=== PATIENT | male | born 1935 | race Caucasian/White ===

== ENCOUNTER 2020-01-12 16:15 | Emergency (ER) | payer OTHER, MEDICARE ==
[~2020-01-12] VITALS: Ht 165.1 cm; Wt 68.2 kg
[~2020-01-12 16:15] MED LIST: ASPI-845 PO; LANS15CA18 PO; LOVA20TA2 PO
[2020-01-12 17:02] LABS: BASOPHILS % (AUTO) 0.8 % (0-1); EOSINOPHILS # (AUTO) 0.4 X10'3 (0-0.9); EOSINOPHILS % (AUTO) 8.9 % (0-6); HEMATOCRIT 30.4 % (42.0-52.0); HEMOGLOBIN 10.3 g/dl (14.0-17.9); LYMPHOCYTES # (AUTO) 0.7 X10'3 (1.1-4.8); LYMPHOCYTES % (AUTO) 15.8 % (21-51); MEAN CORPUSCULAR HEMOGLOBIN 33.3 PG (27.0-31.0); MEAN CORPUSCULAR HGB CONC 33.9 g/dL (33.0-36.5); MEAN CORPUSCULAR VOLUME 98.4 FL (78-98); MEAN PLATELET VOLUME 7.4 FL (7.4-10.4); MONOCYTES # (AUTO) 0.5 X10'3 (0-0.9); MONOCYTES % (AUTO) 9.8 % (2-12); NEUTROPHILS % (AUTO) 64.7 % (42-75); PLATELET COUNT 68 X10'3 (140-440); RED BLOOD COUNT 3.09 X10'6 (4.70-6.10); RED CELL DISTRIBUTION WIDTH 17.7 % (11.5-14.5); WHITE BLOOD COUNT 4.6 X10'3 (4.5-11.0)
[2020-01-12 17:14] LABS: ALANINE AMINOTRANSFERASE 30 U/L (12-78); ALBUMIN 3.7 G/DL (3.4-5.0); ALBUMIN/GLOBULIN RATIO 1.1 (1.1-1.5); ALKALINE PHOSPHATASE 160 IU/L (46-116); ANION GAP 10 (8-16); ASPARTATE AMINO TRANSFERASE 28 U/L (10-37); BILIRUBIN,TOTAL 0.6 MG/DL (0.1-1.0); BLOOD UREA NITROGEN 30 MG/DL (7-18); BUN/CREATININE RATIO 18.5 (5.4-32.0); CALCIUM 8.6 MG/DL (8.5-10.1); CHLORIDE 107 MMOL/L (99-107); CREATININE 1.62 MG/DL (0.60-1.10); GLUCOSE 105 MG/DL (70-104); POTASSIUM 3.9 MMOL/L (3.5-5.1); SODIUM 140 MMOL/L (135-145); TOTAL CARBON DIOXIDE 23.1 MMOL/L (24-32); TOTAL PROTEIN 7.1 G/DL (6.4-8.2); eGFR 41 ML/MIN
--- NOTE | 2020-01-12 19:21 | NUR ---
Pt's ex- Kati phoned to inquire about the patient's status. Pt gave verbal permission to speak with the caller. Pt is ambulating with a staff nurse for a gait test at this time and disposition should be pending shortly
[2020-01-12] MEDS ORDERED: NO HOME MEDS (19:49)
--- NOTE | 2020-01-12 19:56 | NUR ---
tele neuro consult ordered, computer in room now
[2020-01-12] MEDS ORDERED: normal saline 1000ml 1,000 ML IV SCH (20:33)
[2020-01-12] MEDS ORDERED: ondansetron/PF 4mg/2ml inj IV PRN (20:35)
[2020-01-12] MEDS ORDERED: acetaminophen 325mg tablet PO PRN (20:35)
[2020-01-12 21:23] VITALS: BP 184/94
[2020-01-13] MEDS ORDERED: docusate sod 100mg capsule PO SCH (08:00)
[2020-01-13] MEDS ORDERED: aspirin 81mg tablet.DR PO SCH (08:30)
== END 2020-01-12 21:25 | disposition left against medical advice (07) ==
LOC: ER 16:16 → UNDOADMIN 20:33 → ED HOLD 20:33 → UNDODISIN 21:23 → ER 21:25
DX: R42 Dizziness and giddiness (principal); I13.0 Hypertensive heart and chronic kidney disease with heart failure and stage 1 through stage 4 chronic kidney disease, or unspecified chronic kidney disease; I50.22 Chronic systolic (congestive) heart failure; I69.351 Hemiplegia and hemiparesis following cerebral infarction affecting right dominant side; E78.00 Pure hypercholesterolemia, unspecified; Z53.29 Procedure and treatment not carried out because of patient's decision for other reasons; I25.10 Atherosclerotic heart disease of native coronary artery without angina pectoris; N18.9 Chronic kidney disease, unspecified; M54.9 Dorsalgia, unspecified; G89.29 Other chronic pain; I25.2 Old myocardial infarction; Z95.1 Presence of aortocoronary bypass graft; Z90.49 Acquired absence of other specified parts of digestive tract
CPT/HCPCS: 36415; 70450; 71045; 80053; 83880; 84484; 85025; 93005; 99285; G0378

== ENCOUNTER 2022-10-02 10:08 | Emergency (ER) | payer OTHER, MEDICARE ==
[~2022-10-02] VITALS: Ht 165.1 cm; Wt 72.0 kg
[2022-10-02 10:37] LABS: BASOPHILS % (AUTO) 0.7 % (0-1); EOSINOPHILS # (AUTO) 0.1 X10'3 (0-0.9); EOSINOPHILS % (AUTO) 1.8 % (0-6); HEMATOCRIT 33.8 % (42.0-52.0); HEMOGLOBIN 10.8 g/dl (14.0-17.9); LYMPHOCYTES # (AUTO) 0.7 X10'3 (1.1-4.8); MEAN CORPUSCULAR HEMOGLOBIN 30.2 PG (27.0-31.0); MEAN CORPUSCULAR HGB CONC 31.9 g/dL (33.0-36.5); MEAN CORPUSCULAR VOLUME 94.6 FL (78-98); MEAN PLATELET VOLUME 7.7 FL (7.4-10.4); MONOCYTES # (AUTO) 0.6 X10'3 (0-0.9); MONOCYTES % (AUTO) 9.5 % (2-12); NEUTROPHILS # (AUTO) 4.7 X10'3 (1.8-7.7); PLATELET COUNT 89 X10'3 (140-440); RED BLOOD COUNT 3.57 X10'6 (4.70-6.10); RED CELL DISTRIBUTION WIDTH 23.7 % (11.5-14.5); WHITE BLOOD COUNT 6.1 X10'3 (4.5-11.0)
[2022-10-02 10:46] LABS: ALANINE AMINOTRANSFERASE 24 U/L (12-78); ALBUMIN 3.4 G/DL (3.4-5.0); ALKALINE PHOSPHATASE 126 IU/L (46-116); ANION GAP 11 (8-16); ASPARTATE AMINO TRANSFERASE 33 U/L (10-37); BLOOD UREA NITROGEN 27 MG/DL (7-18); BUN/CREATININE RATIO 14.5 (10.0-20.0); CALCIUM 8.6 MG/DL (8.5-10.1); CHLORIDE 111 MMOL/L (99-107); CREATININE 1.86 MG/DL (0.60-1.10); GLUCOSE 127 MG/DL (70-104); POTASSIUM 4.8 MMOL/L (3.5-5.1); SODIUM 144 MMOL/L (135-145); TOTAL PROTEIN 6.9 G/DL (6.4-8.2); eGFR 35 ML/MIN
[2022-10-02 10:51] LABS: LARGE PLATELETS FEW; PLATELET ESTIMATE DECREASED
[2022-10-02 10:52] LABS: ACANTHOCYTES FEW; ANISOCYTOSIS 3+; ELLIPTOCYTES FEW; SCHISTOCYTES FEW
[2022-10-02 11:02] LABS: LIPASE < 50 U/L (73-393)
[2022-10-02 11:24] LABS: MAGNESIUM 1.9 MG/DL (1.5-2.4)
[2022-10-02] MEDS ORDERED: furosemide 20MG tablet PO ONE (12:25)
[2022-10-02] MEDS ORDERED: FURO-150 PO (12:27)
[2022-10-02] MEDS ORDERED: POTA-192 PO (12:27)
[2022-10-02 14:22] VITALS: BP 161/105
== END 2022-10-02 14:15 | disposition home or self-care (01) ==
LOC: ER 10:09
DX: I11.0 Hypertensive heart disease with heart failure (principal); E78.00 Pure hypercholesterolemia, unspecified; I10 Essential (primary) hypertension; Z79.899 Other long term (current) drug therapy
CPT/HCPCS: 36415; 71045; 80053; 83690; 83735; 83880; 84484; 85008; 85025; 93005; 99285

== ENCOUNTER 2023-08-24 06:45 | Emergency (ER) | payer OTHER, MEDICARE ==
[~2023-08-24] VITALS: Ht 167.6 cm; Wt 66.4 kg
[~2023-08-24 06:45] MED LIST changes: -ASPI-845 PO; +FURO-150 PO; -LANS15CA18 PO; -LOVA20TA2 PO
[2023-08-24 06:48] VITALS: BP 169/87; PULSE 103; RESP 16; TEMP 98; O2SAT 100
[2023-08-24] MEDS ORDERED: NEOM10DR45 RIGHT EAR (09:24)
== END 2023-08-24 09:38 | disposition home or self-care (01) ==
LOC: ER 06:46
DX: H60.91 Unspecified otitis externa, right ear (principal); T16.1XXA Foreign body in right ear, initial encounter; E78.00 Pure hypercholesterolemia, unspecified; I11.0 Hypertensive heart disease with heart failure; I50.9 Heart failure, unspecified; Z95.1 Presence of aortocoronary bypass graft; Z86.73 Personal history of transient ischemic attack (TIA), and cerebral infarction without residual deficits; I25.2 Old myocardial infarction
CPT/HCPCS: 99283

== ENCOUNTER 2023-10-07 13:03 | Emergency (ER) | payer OTHER, MEDICARE ==
[~2023-10-07] VITALS: Ht 175.3 cm; Wt 63.6 kg
[2023-10-07 15:27] VITALS: BP 148/90; PULSE 65; RESP 17; TEMP 98.7; O2SAT 98
== END 2023-10-07 15:29 | disposition home or self-care (01) ==
LOC: ER 13:03
DX: S00.31XA Abrasion of nose, initial encounter (principal); S09.90XA Unspecified injury of head, initial encounter; I25.10 Atherosclerotic heart disease of native coronary artery without angina pectoris; Z86.73 Personal history of transient ischemic attack (TIA), and cerebral infarction without residual deficits; I11.0 Hypertensive heart disease with heart failure; I50.9 Heart failure, unspecified; E78.00 Pure hypercholesterolemia, unspecified; I25.2 Old myocardial infarction; Z95.1 Presence of aortocoronary bypass graft; W18.30XA Fall on same level, unspecified, initial encounter; Y93.01 Activity, walking, marching and hiking; Y92.89 Other specified places as the place of occurrence of the external cause; Y99.8 Other external cause status
CPT/HCPCS: 70450; 99284; A6449

== ENCOUNTER 2024-02-28 20:55 | Inpatient (IN) | payer MEDICARE, OTHER ==
[~2024-02-28] VITALS: Ht 167.6 cm; Wt 62.8 kg
[2024-02-28 21:48] LABS: HEMOGLOBIN 9.6 g/dl (14.0-17.9); MONOCYTES # (AUTO) 0.3 X10'3 (0-0.9); RED BLOOD COUNT 2.89 X10'6 (4.70-6.10)
[2024-02-28 21:50] LABS: BASOPHILS % (AUTO) 0.3 % (0-1); EOSINOPHILS % (AUTO) 0.3 % (0-6); HEMATOCRIT 29.6 % (42.0-52.0); LYMPHOCYTES # (AUTO) 0.3 X10'3 (1.1-4.8); LYMPHOCYTES % (AUTO) 6.1 % (21-51); MEAN CORPUSCULAR HEMOGLOBIN 33.2 PG (27.0-31.0); MEAN CORPUSCULAR HGB CONC 32.3 g/dL (33.0-36.5); MEAN CORPUSCULAR VOLUME 102.8 FL (78-98); MEAN PLATELET VOLUME 8.7 FL (7.4-10.4); MONOCYTES % (AUTO) 5.8 % (2-12); NEUTROPHILS # (AUTO) 4.1 X10'3 (1.8-7.7); NEUTROPHILS % (AUTO) 87.5 % (42-75); RED CELL DISTRIBUTION WIDTH 20.1 % (11.5-14.5); WHITE BLOOD COUNT 4.7 X10'3 (4.5-11.0)
[2024-02-28 22:04] LABS: ALANINE AMINOTRANSFERASE 35 U/L (12-78); ALBUMIN 2.1 G/DL (3.4-5.0); ALBUMIN/GLOBULIN RATIO 0.6 (1.1-1.5); ALKALINE PHOSPHATASE 44 IU/L (46-116); ANION GAP 12 (8-16); ASPARTATE AMINO TRANSFERASE 80 U/L (10-37); BILIRUBIN,TOTAL 3.4 MG/DL (0.1-1.0); BLOOD UREA NITROGEN 74 MG/DL (7-18); BUN/CREATININE RATIO 26.3 (10.0-20.0); CALCIUM 8.4 MG/DL (8.5-10.1); CHLORIDE 130 MMOL/L (99-107); CREATININE 2.81 MG/DL (0.60-1.10); GLUCOSE 100 MG/DL (70-104); POTASSIUM 3.3 MMOL/L (3.5-5.1); PRO BRAIN NATRIURETIC PEPTIDE 12647 PG/ML (0-450); TOTAL CARBON DIOXIDE 22.8 MMOL/L (24-32); TOTAL PROTEIN 5.8 G/DL (6.4-8.2); eCRCL 14 ML/MIN; eGFR 21 ML/MIN
[2024-02-28 22:16] LABS: SODIUM 165 MMOL/L (135-145)
[2024-02-28 22:31] LABS: PLATELET COUNT 41 X10'3 (140-440)
[2024-02-28 22:48] LABS: CREATINE KINASE 403 U/L (39-308)
[2024-02-28 22:51] LABS: ETHANOL < 10 MG/DL (<10)
[2024-02-28 22:54] LABS: ANISOCYTOSIS 3+; PLATELET ESTIMATE DECREASED; ROULEAUX 1+
[2024-02-28 22:55] LABS: SCHISTOCYTES FEW; TEAR DROP CELLS FEW
[2024-02-28] MEDS: sodium chloride 0.45% 1,000 ML IV ONE (23:03)
[2024-02-28] MEDS: CefTRIAXone/D5W-Rocephin 1gm 50 ML IV ONE (23:32)
[2024-02-28] MEDS: thiamine 100mg/ml 2ml inj. IV ONE (23:32)
[2024-02-29] VITALS (13 sets, daily range): BP systolic 93–121; BP diastolic 5–85; PULSE 81–106; RESP 11–21; O2SAT 93–100
[2024-02-29] MEDS ORDERED: magnesium hydroxide 30ml (MOM) UD suspension PO PRN (00:05)
[2024-02-29] MEDS: LidoCAINE 2% Topical Jelly 11mL syringe (UROJET) TOP ONE (00:05)
[2024-02-29] MEDS ORDERED: acetaminophen 325mg tablet PO PRN ×2 (00:05)
[2024-02-29] MEDS ORDERED: morphine 4 MG/ML inj SYRINge IV PRN (00:05)
[2024-02-29] MEDS: PERFLUTREN PROTEIN-A MICROSPHR (Optison) 0.22 MG/ML 3ML VIAL IV ONE (00:45)
[2024-02-29 01:46] LABS: THYROID STIMULATING HORMONE 3.16 ulU/ml (0.34-4.50)
[2024-02-29] MEDS: bacitracin 15gm ointment TP STA ×2 (03:10→04:12)
[2024-02-29] MEDS: ondansetron/PF 4mg/2ml inj IV PRN (03:17)
[2024-02-29] MEDS: morphine 2 MG/ML inj. syringe IV PRN (03:17)
[2024-02-29 05:31] LABS: BILIRUBIN,URINE MODERATE (Neg); CLARITY,URINE SLIGHTLY CLOUDY (Clear); GLUCOSE, URINE NEGATIVE (Neg); KETONES,URINE TRACE mg/dl (Neg); LEUKOCYTE ESTERASE ,URINE NEGATIVE (Neg); NITRITES, URINE NEGATIVE (Neg); OCCULT BLOOD,URINE SMALL (Neg); PH,URINE 5.5 (4.8-8.0); PROTEIN,URINE 30 mg/dl (Neg)
[2024-02-29 05:35] LABS: COLOR,URINE DARK YELLOW (Yellow); UA COLLECTION TYPE FOLEY CATH
[2024-02-29 05:39] LABS: BACTERIA,URINE 4+ /HPF (Neg); MUCUS STRANDS NONE SEEN /LPF (Neg); RBC,URINE 0-2 /HPF (0-2); SQUAMOUS EPITHELIAL CELL,UR FEW /LPF (FEW)
[2024-02-29 05:40] LABS: CELLULAR CAST 0-4 /LPF (NEGATIVE); COARSE GRANULAR CAST 0-3 /LPF (NEGATIVE)
[2024-02-29 05:41] LABS: RENAL CELLS, URINE FEW /HPF
[2024-02-29 06:39] LABS: ALANINE AMINOTRANSFERASE 34 U/L (12-78); ALBUMIN 2.1 G/DL (3.4-5.0); ALBUMIN/GLOBULIN RATIO 0.6 (1.1-1.5); ALKALINE PHOSPHATASE 45 IU/L (46-116); ANION GAP 10 (8-16); ASPARTATE AMINO TRANSFERASE 79 U/L (10-37); BILIRUBIN,TOTAL 2.9 MG/DL (0.1-1.0); BLOOD UREA NITROGEN 71 MG/DL (7-18); BUN/CREATININE RATIO 27.5 (10.0-20.0); CALCIUM 8.2 MG/DL (8.5-10.1); CHLORIDE 129 MMOL/L (99-107); CREATININE 2.58 MG/DL (0.60-1.10); GLUCOSE 118 MG/DL (70-104); POTASSIUM 3.2 MMOL/L (3.5-5.1); TOTAL CARBON DIOXIDE 22.9 MMOL/L (24-32); TOTAL PROTEIN 5.8 G/DL (6.4-8.2); eCRCL 15 ML/MIN; eGFR 24 ML/MIN
[2024-02-29 06:41] LABS: SODIUM 162 MMOL/L (135-145)
[2024-02-29 06:46] LABS: EOSINOPHILS % (AUTO) 0.3 % (0-6); HEMOGLOBIN 9.7 g/dl (14.0-17.9); LYMPHOCYTES # (AUTO) 0.2 X10'3 (1.1-4.8); NEUTROPHILS # (AUTO) 4.3 X10'3 (1.8-7.7); WHITE BLOOD COUNT 4.9 X10'3 (4.5-11.0)
[2024-02-29 06:48] LABS: BASOPHILS % (AUTO) 0.3 % (0-1); HEMATOCRIT 29.6 % (42.0-52.0); LYMPHOCYTES % (AUTO) 4.1 % (21-51); MEAN CORPUSCULAR HEMOGLOBIN 33.6 PG (27.0-31.0); MEAN CORPUSCULAR HGB CONC 32.8 g/dL (33.0-36.5); MEAN CORPUSCULAR VOLUME 102.4 FL (78-98); MEAN PLATELET VOLUME 8.7 FL (7.4-10.4); MONOCYTES # (AUTO) 0.3 X10'3 (0-0.9); MONOCYTES % (AUTO) 6.3 % (2-12); RED BLOOD COUNT 2.89 X10'6 (4.70-6.10); RED CELL DISTRIBUTION WIDTH 20.3 % (11.5-14.5)
[2024-02-29 06:50] LABS: PLATELET COUNT 33 X10'3 (140-440)
[2024-02-29 08:42] LABS: CHOL/HDL RATIO 3.2 (0.00-4.99); CHOLESTEROL 110 MG/DL (0-200); HDL CHOLESTEROL 34 MG/DL (35-60); LDL CHOLESTEROL 56 MG/DL (50-100); MAGNESIUM 2.3 MG/DL (1.5-2.4); TRIGLYCERIDES 150 MG/DL (20-135)
[2024-02-29 08:50] LABS: HEMOGLOBIN A1C 5.4 % (4.5-6.2)
[2024-02-29] MEDS: dextrose 5%-water 1,000 ML IV SCH (10:09)
[2024-02-29] MEDS ORDERED: potassium Cl 20 mEq SR tablet PO PRN (10:50)
[2024-02-29] MEDS ORDERED: potassium CL 10mEq/100ml bag 100 ML IV PRN (10:50)
[2024-02-29] MEDS ORDERED: magnesium sulf-water 2g/50mL 50 ML IV PRN (10:50)
[2024-02-29] MEDS ORDERED: acetaminophen 325mg tablet CORPAK PRN ×2 (14:23)
[2024-02-29] MEDS ORDERED: magnesium hydroxide 30ml (MOM) UD suspension CORPAK PRN (14:24)
[2024-02-29] MEDS ORDERED: potassium Cl 20 mEq SR tablet CORPAK PRN (14:24)
[2024-02-29] MEDS: potassium Cl 40MEQ/1/2NS 520ml 520 ML IV PRN (14:25)
[2024-02-29] MEDS ORDERED: POTASSIUM CHLORIDE 20 MEQ/15 ML oral solution CORPAK PRN (14:25)
[2024-02-29] MEDS ORDERED: aspirin 81mg, enteric-coated 1 TAB TABLET.DR PO SCH (14:30)
[2024-02-29 15:28] LABS: ALBUMIN 1.9 G/DL (3.4-5.0); ANION GAP 8 (8-16); BLOOD UREA NITROGEN 74 MG/DL (7-18); BUN/CREATININE RATIO 30.2 (10.0-20.0); CHLORIDE 129 MMOL/L (99-107); CREATININE 2.45 MG/DL (0.60-1.10); GLUCOSE 136 MG/DL (70-104); TOTAL CARBON DIOXIDE 22.7 MMOL/L (24-32); eCRCL 16 ML/MIN; eGFR 25 ML/MIN
[2024-02-29 15:29] LABS: POTASSIUM 3.4 MMOL/L (3.5-5.1)
[2024-02-29 15:33] LABS: SODIUM 160 MMOL/L (135-145)
[2024-02-29] MEDS ORDERED: NO HOME MEDS (17:24)
[2024-02-29] MEDS: DOBUTamine-DoBUTrex 500mg/D5W 250 ML IV SCH (19:19)
[2024-02-29] MEDS: CefTRIAXone/D5W-Rocephin 1gm 50 ML IV SCH (20:26)
[2024-03-01] VITALS (24 sets, daily range): BP systolic 83–109; BP diastolic 39–58; PULSE 81–96; RESP 12–20; O2SAT 95–100
[2024-03-01 01:38] LABS: EOSINOPHILS % (AUTO) 0.5 % (0-6); HEMOGLOBIN 8.6 g/dl (14.0-17.9); LYMPHOCYTES # (AUTO) 0.3 X10'3 (1.1-4.8); MONOCYTES # (AUTO) 0.2 X10'3 (0-0.9)
[2024-03-01 01:40] LABS: BASOPHILS % (AUTO) 0.5 % (0-1); HEMATOCRIT 26.4 % (42.0-52.0); LYMPHOCYTES % (AUTO) 6.8 % (21-51); MEAN CORPUSCULAR HEMOGLOBIN 33.5 PG (27.0-31.0); MEAN CORPUSCULAR HGB CONC 32.5 g/dL (33.0-36.5); MEAN CORPUSCULAR VOLUME 103.2 FL (78-98); MEAN PLATELET VOLUME 8.7 FL (7.4-10.4); MONOCYTES % (AUTO) 4.6 % (2-12); NEUTROPHILS # (AUTO) 3.8 X10'3 (1.8-7.7); NEUTROPHILS % (AUTO) 87.6 % (42-75); RED BLOOD COUNT 2.56 X10'6 (4.70-6.10); RED CELL DISTRIBUTION WIDTH 20.7 % (11.5-14.5); WHITE BLOOD COUNT 4.3 X10'3 (4.5-11.0)
[2024-03-01 01:42] LABS: PLATELET COUNT 26 X10'3 (140-440)
[2024-03-01 02:19] LABS: ALANINE AMINOTRANSFERASE 32 U/L (12-78); ALBUMIN 1.9 G/DL (3.4-5.0); ALBUMIN/GLOBULIN RATIO 0.6 (1.1-1.5); ALKALINE PHOSPHATASE 48 IU/L (46-116); ANION GAP 6 (8-16); ASPARTATE AMINO TRANSFERASE 72 U/L (10-37); BILIRUBIN,TOTAL 1.6 MG/DL (0.1-1.0); BLOOD UREA NITROGEN 66 MG/DL (7-18); BUN/CREATININE RATIO 28.1 (10.0-20.0); CHLORIDE 125 MMOL/L (99-107); CREATINE KINASE 402 U/L (39-308); CREATININE 2.35 MG/DL (0.60-1.10); GLUCOSE 233 MG/DL (70-104); MAGNESIUM 2.2 MG/DL (1.5-2.4); PHOSPHORUS 2.8 MG/DL (2.3-4.5); POTASSIUM 4.5 MMOL/L (3.5-5.1); PRO BRAIN NATRIURETIC PEPTIDE 9889 PG/ML (0-450); TOTAL CARBON DIOXIDE 23.6 MMOL/L (24-32); TOTAL PROTEIN 5.3 G/DL (6.4-8.2); eCRCL 17 ML/MIN; eGFR 26 ML/MIN
[2024-03-01 02:21] LABS: SODIUM 155 MMOL/L (135-145)
[2024-03-01] MEDS ORDERED: MULTIVIT-MIN/FERROUS GLUCONATE 9 MG/15 ML LIQUID PO SCH (11:14)
[2024-03-01] MEDS: pantoprazole 40 MG vial IV SCH (12:02)
[2024-03-01] MEDS ORDERED: DEXTROSE 15 GM of carb/4 tabs (each vial/BOTTLE has 4 tablets) PO PRN ×2 (14:35)
[2024-03-01] MEDS ORDERED: glucagon, human recombinant 1mg kit SUBCUT PRN (14:35)
[2024-03-01] MEDS ORDERED: dextrose 50%-water 50ml dispensing syringe IV PRN ×2 (14:35)
[2024-03-01 14:48] LABS: BASOPHILS % (AUTO) 0.7 % (0-1); EOSINOPHILS % (AUTO) 1.1 % (0-6); HEMATOCRIT 25.7 % (42.0-52.0); HEMOGLOBIN 8.3 g/dl (14.0-17.9); LYMPHOCYTES # (AUTO) 0.2 X10'3 (1.1-4.8); LYMPHOCYTES % (AUTO) 5.6 % (21-51); MEAN CORPUSCULAR HEMOGLOBIN 33.3 PG (27.0-31.0); MEAN CORPUSCULAR HGB CONC 32.4 g/dL (33.0-36.5); MEAN CORPUSCULAR VOLUME 102.8 FL (78-98); MEAN PLATELET VOLUME 9.3 FL (7.4-10.4); MONOCYTES # (AUTO) 0.2 X10'3 (0-0.9); MONOCYTES % (AUTO) 5.8 % (2-12); NEUTROPHILS # (AUTO) 3.6 X10'3 (1.8-7.7); NEUTROPHILS % (AUTO) 86.8 % (42-75); RED CELL DISTRIBUTION WIDTH 20.7 % (11.5-14.5); WHITE BLOOD COUNT 4.2 X10'3 (4.5-11.0)
[2024-03-01 14:51] LABS: PLATELET COUNT 25 X10'3 (140-440)
[2024-03-01 15:03] LABS: ALANINE AMINOTRANSFERASE 33 U/L (12-78); ALBUMIN 1.8 G/DL (3.4-5.0); ALBUMIN/GLOBULIN RATIO 0.5 (1.1-1.5); ALKALINE PHOSPHATASE 65 IU/L (46-116); ANION GAP 8 (8-16); ASPARTATE AMINO TRANSFERASE 67 U/L (10-37); BILIRUBIN,TOTAL 1.3 MG/DL (0.1-1.0); BLOOD UREA NITROGEN 66 MG/DL (7-18); BUN/CREATININE RATIO 30.6 (10.0-20.0); CALCIUM 7.9 MG/DL (8.5-10.1); CHLORIDE 118 MMOL/L (99-107); CREATININE 2.16 MG/DL (0.60-1.10); GLUCOSE 228 MG/DL (70-104); PHOSPHORUS 1.6 MG/DL (2.3-4.5); POTASSIUM 4.2 MMOL/L (3.5-5.1); SODIUM 148 MMOL/L (135-145); TOTAL CARBON DIOXIDE 22.3 MMOL/L (24-32); TOTAL PROTEIN 5.3 G/DL (6.4-8.2); eCRCL 19 ML/MIN; eGFR 29 ML/MIN
[2024-03-01 15:07] LABS: APTT 29 SECONDS (22-32); INR 1.3 INR
[2024-03-01] MEDS: INSULIN LISPRO 100 UNIT/ML INSULN.PEN MULTI-DOSE SQ SCH (17:00)
[2024-03-01] MEDS ORDERED: docusate sodium 100mg/10ml UD cup CORPAK SCH (20:00)
[2024-03-02] VITALS (30 sets, daily range): BP systolic 88–108; BP diastolic 42–64; PULSE 83–96; RESP 10–23; TEMP 96.8–98.3; O2SAT 84–100
[2024-03-02 03:56] LABS: BASOPHILS % (AUTO) 0.4 % (0-1); EOSINOPHILS % (AUTO) 0.7 % (0-6); HEMATOCRIT 25.4 % (42.0-52.0); HEMOGLOBIN 8.1 g/dl (14.0-17.9); LYMPHOCYTES # (AUTO) 0.3 X10'3 (1.1-4.8); LYMPHOCYTES % (AUTO) 8.1 % (21-51); MEAN CORPUSCULAR HEMOGLOBIN 32.8 PG (27.0-31.0); MEAN CORPUSCULAR HGB CONC 31.8 g/dL (33.0-36.5); MEAN CORPUSCULAR VOLUME 103.3 FL (78-98); MONOCYTES # (AUTO) 0.2 X10'3 (0-0.9); NEUTROPHILS # (AUTO) 3.4 X10'3 (1.8-7.7); NEUTROPHILS % (AUTO) 84.8 % (42-75); RED BLOOD COUNT 2.46 X10'6 (4.70-6.10); RED CELL DISTRIBUTION WIDTH 20.7 % (11.5-14.5); WHITE BLOOD COUNT 4.1 X10'3 (4.5-11.0)
[2024-03-02 04:11] LABS: ALANINE AMINOTRANSFERASE 30 U/L (12-78); ALBUMIN 1.7 G/DL (3.4-5.0); ALBUMIN/GLOBULIN RATIO 0.5 (1.1-1.5); ALKALINE PHOSPHATASE 69 IU/L (46-116); ANION GAP 5 (8-16); ASPARTATE AMINO TRANSFERASE 55 U/L (10-37); BILIRUBIN,TOTAL 1.2 MG/DL (0.1-1.0); BLOOD UREA NITROGEN 60 MG/DL (7-18); BUN/CREATININE RATIO 30.8 (10.0-20.0); CALCIUM 7.8 MG/DL (8.5-10.1); CHLORIDE 114 MMOL/L (99-107); CREATINE KINASE 193 U/L (39-308); CREATININE 1.95 MG/DL (0.60-1.10); GLUCOSE 221 MG/DL (70-104); MAGNESIUM 1.9 MG/DL (1.5-2.4); PHOSPHORUS 1.6 MG/DL (2.3-4.5); PRO BRAIN NATRIURETIC PEPTIDE 8685 PG/ML (0-450); SODIUM 141 MMOL/L (135-145); TOTAL CARBON DIOXIDE 21.8 MMOL/L (24-32); TOTAL PROTEIN 5.2 G/DL (6.4-8.2); eCRCL 24 ML/MIN; eGFR 33 ML/MIN
[2024-03-02 04:16] LABS: POTASSIUM 4.5 MMOL/L (3.5-5.1)
[2024-03-02 04:17] LABS: PLATELET COUNT 23 X10'3 (140-440)
[2024-03-02] MEDS: magnesium sulf-water 4G/100mL 100 ML IV PRN (04:32)
[2024-03-02] MEDS: MULTIVIT-MIN/FERROUS GLUCONATE 9 MG/15 ML LIQUID CORPAK SCH (07:10)
[2024-03-02] MEDS: DOBUTamine-DoBUTrex 500mg/D5W 250 ML IV SCH (08:13)
[2024-03-02] MEDS: erythromycin ethylsuccinate 200mg/5mL ORAL suspension CORPAK SCH (10:38)
[2024-03-02] MEDS: Neutra Phos packet CORPAK SCH (14:15)
[2024-03-03 02:00] VITALS: BP 94/63; PULSE 87; RESP 18; TEMP 97.3; O2SAT 99
[2024-03-03 06:34] LABS: LYMPHOCYTES # (AUTO) 0.3 X10'3 (1.1-4.8); MONOCYTES # (AUTO) 0.3 X10'3 (0-0.9)
[2024-03-03 06:39] LABS: BASOPHILS % (AUTO) 0.5 % (0-1); EOSINOPHILS % (AUTO) 0.8 % (0-6); LYMPHOCYTES % (AUTO) 7.1 % (21-51); MEAN CORPUSCULAR HEMOGLOBIN 33.4 PG (27.0-31.0); MEAN CORPUSCULAR HGB CONC 33.5 g/dL (33.0-36.5); MEAN CORPUSCULAR VOLUME 99.9 FL (78-98); MEAN PLATELET VOLUME 9.7 FL (7.4-10.4); MONOCYTES % (AUTO) 6.8 % (2-12); NEUTROPHILS # (AUTO) 3.9 X10'3 (1.8-7.7); NEUTROPHILS % (AUTO) 84.8 % (42-75); RED CELL DISTRIBUTION WIDTH 20.2 % (11.5-14.5); WHITE BLOOD COUNT 4.6 X10'3 (4.5-11.0)
[2024-03-03 07:02] LABS: PLATELET COUNT 29 X10'3 (140-440)
[2024-03-03 07:06] LABS: ALANINE AMINOTRANSFERASE 27 U/L (12-78); ALBUMIN 1.6 G/DL (3.4-5.0); ALBUMIN/GLOBULIN RATIO 0.4 (1.1-1.5); ALKALINE PHOSPHATASE 76 IU/L (46-116); ANION GAP 7 (8-16); ASPARTATE AMINO TRANSFERASE 45 U/L (10-37); BILIRUBIN,TOTAL 1.2 MG/DL (0.1-1.0); BLOOD UREA NITROGEN 65 MG/DL (7-18); BUN/CREATININE RATIO 33.9 (10.0-20.0); CALCIUM 7.4 MG/DL (8.5-10.1); CHLORIDE 109 MMOL/L (99-107); CREATINE KINASE 96 U/L (39-308); CREATININE 1.92 MG/DL (0.60-1.10); GLUCOSE 179 MG/DL (70-104); MAGNESIUM 2.4 MG/DL (1.5-2.4); PHOSPHORUS 2.1 MG/DL (2.3-4.5); POTASSIUM 4.5 MMOL/L (3.5-5.1); SODIUM 139 MMOL/L (135-145); TOTAL CARBON DIOXIDE 22.9 MMOL/L (24-32); TOTAL PROTEIN 5.2 G/DL (6.4-8.2); eCRCL 24 ML/MIN; eGFR 33 ML/MIN
[2024-03-03 11:00] VITALS: BP 100/59; PULSE 87; RESP 18; TEMP 96.9; O2SAT 98
[2024-03-03 15:00] VITALS: BP 105/59; PULSE 86; RESP 23; TEMP 97.6; O2SAT 95
[2024-03-03 18:00] VITALS: BP 97/53; PULSE 87; RESP 15; TEMP 97.5; O2SAT 97
[2024-03-03 20:00] VITALS: RESP 15; O2SAT 97
[2024-03-03 22:00] VITALS: BP 103/59; PULSE 81; RESP 20; TEMP 97.4; O2SAT 97
[2024-03-04 06:00] VITALS: BP 106/57; PULSE 86; RESP 12; TEMP 97.4; O2SAT 100
[2024-03-04 06:06] LABS: BASOPHILS % (AUTO) 0.4 % (0-1); EOSINOPHILS % (AUTO) 0.5 % (0-6); HEMATOCRIT 25.3 % (42.0-52.0); HEMOGLOBIN 8.7 g/dl (14.0-17.9); LYMPHOCYTES # (AUTO) 0.4 X10'3 (1.1-4.8); LYMPHOCYTES % (AUTO) 5.8 % (21-51); MEAN CORPUSCULAR HEMOGLOBIN 34.4 PG (27.0-31.0); MEAN CORPUSCULAR HGB CONC 34.3 g/dL (33.0-36.5); MEAN CORPUSCULAR VOLUME 100.2 FL (78-98); MEAN PLATELET VOLUME 10.4 FL (7.4-10.4); MONOCYTES # (AUTO) 0.6 X10'3 (0-0.9); MONOCYTES % (AUTO) 8.2 % (2-12); NEUTROPHILS # (AUTO) 6.1 X10'3 (1.8-7.7); NEUTROPHILS % (AUTO) 85.1 % (42-75); RED BLOOD COUNT 2.52 X10'6 (4.70-6.10); RED CELL DISTRIBUTION WIDTH 20.1 % (11.5-14.5); WHITE BLOOD COUNT 7.2 X10'3 (4.5-11.0)
[2024-03-04 06:13] LABS: ALANINE AMINOTRANSFERASE 28 U/L (12-78); ALBUMIN 1.8 G/DL (3.4-5.0); ALBUMIN/GLOBULIN RATIO 0.5 (1.1-1.5); ALKALINE PHOSPHATASE 115 IU/L (46-116); ANION GAP 8 (8-16); ASPARTATE AMINO TRANSFERASE 45 U/L (10-37); BILIRUBIN,TOTAL 1.4 MG/DL (0.1-1.0); BLOOD UREA NITROGEN 69 MG/DL (7-18); BUN/CREATININE RATIO 36.9 (10.0-20.0); CALCIUM 7.4 MG/DL (8.5-10.1); CHLORIDE 107 MMOL/L (99-107); CREATINE KINASE 88 U/L (39-308); CREATININE 1.87 MG/DL (0.60-1.10); GLUCOSE 190 MG/DL (70-104); MAGNESIUM 2.3 MG/DL (1.5-2.4); PHOSPHORUS 3.2 MG/DL (2.3-4.5); POTASSIUM 4.7 MMOL/L (3.5-5.1); SODIUM 138 MMOL/L (135-145); TOTAL CARBON DIOXIDE 22.8 MMOL/L (24-32); TOTAL PROTEIN 5.6 G/DL (6.4-8.2); eCRCL 25 ML/MIN; eGFR 34 ML/MIN
[2024-03-04 07:29] LABS: PLATELET COUNT 47 X10'3 (140-440)
[2024-03-04 08:00] VITALS: RESP 14; O2SAT 100
[2024-03-04 08:50] LABS: ANISOCYTOSIS 3+; LARGE PLATELETS FEW; PLATELET ESTIMATE DECREASED; POIKILOCYTOSIS FEW; SCHISTOCYTES FEW
[2024-03-04] MEDS: sodium chloride 0.45% 1,000 ML IV SCH (11:10)
[2024-03-04] MEDS ORDERED: carVEDilol 3.125mg tablet PO SCH (11:10)
[2024-03-04 15:00] VITALS: BP 96/52; PULSE 84; RESP 14; TEMP 96.7; O2SAT 97
[2024-03-04 18:00] VITALS: BP 115/65; PULSE 80; RESP 16; TEMP 97.6; O2SAT 99
[2024-03-04 20:00] VITALS: RESP 16; O2SAT 99
[2024-03-04] MEDS: carVEDilol 3.125mg tablet PO SCH (21:14)
[2024-03-04] MEDS: atorvastatin 20mg tablet PO SCH (21:14)
[2024-03-04 22:00] VITALS: BP 107/55; PULSE 87; RESP 20; TEMP 97.4; O2SAT 100
[2024-03-05] VITALS (8 sets, daily range): BP systolic 80–114; BP diastolic 50–74; PULSE 70–87; RESP 12–23; TEMP 96.9–97.8; O2SAT 93–100
[2024-03-05 05:59] LABS: HEMOGLOBIN 8.2 g/dl (14.0-17.9); LYMPHOCYTES # (AUTO) 0.3 X10'3 (1.1-4.8); MEAN CORPUSCULAR HGB CONC 32.9 g/dL (33.0-36.5)
[2024-03-05 06:02] LABS: BASOPHILS % (AUTO) 0.5 % (0-1); EOSINOPHILS % (AUTO) 0.7 % (0-6); HEMATOCRIT 24.8 % (42.0-52.0); LYMPHOCYTES % (AUTO) 4.9 % (21-51); MEAN CORPUSCULAR HEMOGLOBIN 33.2 PG (27.0-31.0); MEAN CORPUSCULAR VOLUME 100.7 FL (78-98); MEAN PLATELET VOLUME 9.8 FL (7.4-10.4); MONOCYTES # (AUTO) 0.5 X10'3 (0-0.9); MONOCYTES % (AUTO) 8.1 % (2-12); NEUTROPHILS % (AUTO) 85.8 % (42-75); RED BLOOD COUNT 2.46 X10'6 (4.70-6.10); RED CELL DISTRIBUTION WIDTH 20.1 % (11.5-14.5); WHITE BLOOD COUNT 5.8 X10'3 (4.5-11.0)
[2024-03-05 06:19] LABS: PLATELET COUNT 49 X10'3 (140-440)
[2024-03-05 06:21] LABS: ALANINE AMINOTRANSFERASE 31 U/L (12-78); ALBUMIN 1.7 G/DL (3.4-5.0); ALBUMIN/GLOBULIN RATIO 0.4 (1.1-1.5); ALKALINE PHOSPHATASE 104 IU/L (46-116); ANION GAP 6 (8-16); ASPARTATE AMINO TRANSFERASE 41 U/L (10-37); BILIRUBIN,TOTAL 1.3 MG/DL (0.1-1.0); BLOOD UREA NITROGEN 65 MG/DL (7-18); BUN/CREATININE RATIO 36.5 (10.0-20.0); CALCIUM 7.5 MG/DL (8.5-10.1); CHLORIDE 108 MMOL/L (99-107); CREATININE 1.78 MG/DL (0.60-1.10); GLUCOSE 141 MG/DL (70-104); MAGNESIUM 2.2 MG/DL (1.5-2.4); PHOSPHORUS 4.5 MG/DL (2.3-4.5); POTASSIUM 5.1 MMOL/L (3.5-5.1); SODIUM 141 MMOL/L (135-145); TOTAL PROTEIN 5.5 G/DL (6.4-8.2); eCRCL 26 ML/MIN; eGFR 36 ML/MIN
[2024-03-05 07:57] LABS: ANISOCYTOSIS 3+; MICROCYTOSIS 1+; PLATELET ESTIMATE DECREASED; SCHISTOCYTES FEW; TARGET CELLS FEW
[2024-03-05 07:58] LABS: POLYCHROMASIA FEW
[2024-03-05] MEDS: aspirin 81mg tab.chew PO SCH (08:42)
[2024-03-05] MEDS ORDERED: acetaminophen 325mg tablet PO PRN ×2 (13:12)
[2024-03-05] MEDS ORDERED: magnesium hydroxide 30ml (MOM) UD suspension PO PRN (13:12)
[2024-03-05] MEDS ORDERED: POTASSIUM CHLORIDE 20 MEQ/15 ML oral solution PO PRN (13:13)
[2024-03-05] MEDS: erythromycin ethylsuccinate 200mg/5mL ORAL suspension PO SCH (16:34)
[2024-03-06 02:00] VITALS: BP 98/55; PULSE 85; RESP 16; TEMP 97.9; O2SAT 97
[2024-03-06 06:52] LABS: ALANINE AMINOTRANSFERASE 26 U/L (12-78); ALBUMIN 1.6 G/DL (3.4-5.0); ALBUMIN/GLOBULIN RATIO 0.4 (1.1-1.5); ALKALINE PHOSPHATASE 110 IU/L (46-116); ANION GAP 7 (8-16); ASPARTATE AMINO TRANSFERASE 40 U/L (10-37); BILIRUBIN,TOTAL 1.1 MG/DL (0.1-1.0); BLOOD UREA NITROGEN 73 MG/DL (7-18); BUN/CREATININE RATIO 41.5 (10.0-20.0); CALCIUM 7.6 MG/DL (8.5-10.1); CHLORIDE 108 MMOL/L (99-107); CREATININE 1.76 MG/DL (0.60-1.10); GLUCOSE 175 MG/DL (70-104); MAGNESIUM 2.1 MG/DL (1.5-2.4); PHOSPHORUS 3.9 MG/DL (2.3-4.5); POTASSIUM 4.5 MMOL/L (3.5-5.1); PREALBUMIN 8.3 MG/DL (19-36); SODIUM 139 MMOL/L (135-145); TOTAL CARBON DIOXIDE 24.1 MMOL/L (24-32); TOTAL PROTEIN 5.3 G/DL (6.4-8.2); eCRCL 26 ML/MIN; eGFR 37 ML/MIN
[2024-03-06 07:11] LABS: HEMOGLOBIN 7.5 g/dl (14.0-17.9)
[2024-03-06 07:15] VITALS: BP 89/50; PULSE 80; RESP 19; TEMP 97.8; O2SAT 100
[2024-03-06 08:00] VITALS: RESP 19; O2SAT 100
[2024-03-06 08:08] LABS: PLATELET COUNT 44 X10'3 (140-440)
[2024-03-06 08:10] LABS: RED BLOOD COUNT 2.27 X10'6 (4.70-6.10); WHITE BLOOD COUNT 4.6 X10'3 (4.5-11.0)
[2024-03-06 08:11] LABS: BASOPHILS % (AUTO) 0.7 % (0-1); EOSINOPHILS % (AUTO) 0.8 % (0-6); LYMPHOCYTES # (AUTO) 0.3 X10'3 (1.1-4.8); LYMPHOCYTES % (AUTO) 7.5 % (21-51); MEAN CORPUSCULAR HEMOGLOBIN 33.2 PG (27.0-31.0); MEAN CORPUSCULAR HGB CONC 32.7 g/dL (33.0-36.5); MEAN CORPUSCULAR VOLUME 101.5 FL (78-98); MEAN PLATELET VOLUME 10.2 FL (7.4-10.4); MONOCYTES % (AUTO) 9.8 % (2-12); NEUTROPHILS # (AUTO) 3.7 X10'3 (1.8-7.7); NEUTROPHILS % (AUTO) 81.2 % (42-75); RED CELL DISTRIBUTION WIDTH 21.4 % (11.5-14.5)
[2024-03-06 08:12] LABS: MONOCYTES # (AUTO) 0.4 X10'3 (0-0.9)
[2024-03-06] MEDS: MULTIVIT-MIN/FERROUS GLUCONATE 9 MG/15 ML LIQUID PO SCH (08:51)
[2024-03-06] MEDS: pantoprazole 40mg Tablet.DR PO SCH (08:51)
[2024-03-06 12:00] VITALS: BP 84/52; PULSE 105; RESP 20; TEMP 97.1; O2SAT 99
== END 2024-03-06 14:53 | DRG 682 ==
LOC: ER 20:55 → ED HOLD 02-29 00:11 → EDBEDREQ 02-29 04:32 → CICU 2S 02-29 05:26 → PCU 3S 03-02 12:05
PROVIDERS: ADMIT Internal Medicine Sleep Medicine; ATTEND Internal Medicine Sleep Medicine
DX: N17.0 Acute kidney failure with tubular necrosis (principal); E43 Unspecified severe protein-calorie malnutrition; G93.41 Metabolic encephalopathy; I21.A1 Myocardial infarction type 2; E87.0 Hyperosmolality and hypernatremia; I42.9 Cardiomyopathy, unspecified; I50.22 Chronic systolic (congestive) heart failure; D69.6 Thrombocytopenia, unspecified; W18.39XA Other fall on same level, initial encounter; D53.9 Nutritional anemia, unspecified; S20.223A Contusion of bilateral back wall of thorax, initial encounter; E87.6 Hypokalemia; D50.9 Iron deficiency anemia, unspecified; E78.00 Pure hypercholesterolemia, unspecified; I25.10 Atherosclerotic heart disease of native coronary artery without angina pectoris; I13.10 Hypertensive heart and chronic kidney disease without heart failure, with stage 1 through stage 4 chronic kidney disease, or unspecified chronic kidney disease; N18.9 Chronic kidney disease, unspecified; I65.21 Occlusion and stenosis of right carotid artery; M50.31 Other cervical disc degeneration, high cervical region; J32.4 Chronic pansinusitis; X58.XXXA Exposure to other specified factors, initial encounter; Z68.22 Body mass index [BMI] 22.0-22.9, adult; I25.2 Old myocardial infarction; Y93.89 Activity, other specified; Y92.89 Other specified places as the place of occurrence of the external cause; Y99.8 Other external cause status; Z95.1 Presence of aortocoronary bypass graft; Z86.73 Personal history of transient ischemic attack (TIA), and cerebral infarction without residual deficits
CPT/HCPCS: 36415; 70450; 71045; 72125; 74018; 80048; 80053; 80061; 80320; 81001; 82140; 82550; 82607; 82948; 83036; 83605; 83735; 83880; 84100; 84134; 84145; 84443; 84484; 85008; 85025; 85610; 85730; 87040; 87081; 87088; 92508; 92616; 93005; 93306; 96365; 96375; 97161; 97530; 99285; A4314; A4333; A4615; A4649; A6212; A6213; A6223; A6250; A6253; A6258; A6449; A6590; C1751; C1758; G0378; J0696; J1250; J1815; J2270; J2405; J2470; J3411; J3475; J3480; J3490; J7040; J7070

== ENCOUNTER 2024-03-13 13:12 | Emergency (ER) | payer MEDICARE, OTHER ==
[~2024-03-13] VITALS: Ht 157.5 cm; Wt 63.0 kg
[~2024-03-13 13:12] MED LIST changes: -FURO-150 PO; +NO HOME MEDS
[2024-03-13 15:07] LABS: BILIRUBIN,URINE NEGATIVE (Neg); CLARITY,URINE CLEAR (Clear); COLOR,URINE YELLOW (Yellow); GLUCOSE, URINE NEGATIVE (Neg); KETONES,URINE NEGATIVE (Neg); LEUKOCYTE ESTERASE ,URINE NEGATIVE (Neg); NITRITES, URINE NEGATIVE (Neg); OCCULT BLOOD,URINE TRACE-INTACT (Neg); PROTEIN,URINE TRACE mg/dl (Neg)
[2024-03-13 15:10] LABS: UA COLLECTION TYPE FOLEY CATH
[2024-03-13 15:47] LABS: EOSINOPHILS # (AUTO) 0.1 X10'3 (0-0.9); HEMOGLOBIN 7.6 g/dl (14.0-17.9); LYMPHOCYTES # (AUTO) 0.4 X10'3 (1.1-4.8); MEAN CORPUSCULAR HEMOGLOBIN 33.7 PG (27.0-31.0); MONOCYTES # (AUTO) 0.5 X10'3 (0-0.9); NEUTROPHILS # (AUTO) 2.6 X10'3 (1.8-7.7); NEUTROPHILS % (AUTO) 71.6 % (42-75); RED BLOOD COUNT 2.26 X10'6 (4.70-6.10); WHITE BLOOD COUNT 3.6 X10'3 (4.5-11.0)
[2024-03-13 15:48] LABS: MUCUS STRANDS FEW /LPF (Neg)
[2024-03-13 15:49] LABS: BASOPHILS % (AUTO) 0.8 % (0-1); HEMATOCRIT 23.4 % (42.0-52.0); LYMPHOCYTES % (AUTO) 12.3 % (21-51); MEAN CORPUSCULAR HGB CONC 32.6 g/dL (33.0-36.5); MEAN CORPUSCULAR VOLUME 103.5 FL (78-98); MEAN PLATELET VOLUME 8.4 FL (7.4-10.4); MONOCYTES % (AUTO) 13.3 % (2-12); PLATELET COUNT 60 X10'3 (140-440); RED CELL DISTRIBUTION WIDTH 23.3 % (11.5-14.5)
[2024-03-13 15:49] LABS: HYALINE CASTS 0-3 /LPF (NEGATIVE); SQUAMOUS EPITHELIAL CELL,UR FEW /LPF (FEW); URIC ACID CRYSTALS 4+ /HPF (NEGATIVE)
[2024-03-13 15:50] LABS: ALANINE AMINOTRANSFERASE 84 U/L (12-78); ALBUMIN 1.7 G/DL (3.4-5.0); ALBUMIN/GLOBULIN RATIO 0.4 (1.1-1.5); ALKALINE PHOSPHATASE 98 IU/L (46-116); ANION GAP 8 (8-16); ASPARTATE AMINO TRANSFERASE 120 U/L (10-37); BILIRUBIN,TOTAL 0.8 MG/DL (0.1-1.0); BLOOD UREA NITROGEN 52 MG/DL (7-18); BUN/CREATININE RATIO 31.1 (10.0-20.0); CALCIUM 7.6 MG/DL (8.5-10.1); CHLORIDE 106 MMOL/L (99-107); CREATININE 1.67 MG/DL (0.60-1.10); GLUCOSE 123 MG/DL (70-104); SODIUM 137 MMOL/L (135-145); TOTAL CARBON DIOXIDE 23.2 MMOL/L (24-32); TOTAL PROTEIN 5.5 G/DL (6.4-8.2); eCRCL 24 ML/MIN; eGFR 39 ML/MIN
[2024-03-13 15:50] LABS: BACTERIA,URINE NONE SEEN /HPF (Neg); WBC,URINE 0-4 /HPF (0-4)
[2024-03-13 15:51] LABS: PRO BRAIN NATRIURETIC PEPTIDE 5385 PG/ML (0-450)
[2024-03-13 15:52] LABS: LIPASE 38 U/L (16-77)
[2024-03-13 16:35] LABS: ANISOCYTOSIS 3+; PLATELET ESTIMATE DECREASED; TOTAL CELLS COUNTED 100
[2024-03-13 16:36] LABS: ELLIPTOCYTES FEW; POLYCHROMASIA FEW; ROULEAUX 1+; TEAR DROP CELLS 1+
[2024-03-13 18:54] LABS: BF RBC COUNT 95 /CU MM; BF WBC COUNT 98 /CU MM (0-1000); BFAPPEAR HAZY; BFCOLOR YELLOW; BFSOURCE ASCITES FLD; BFVOLUME 48 ML; LYMPHOCYTES,BODY FLUID 74 %; MONOCYTES,BODY FLUID 12 %; NEUTROPHILS,BODY FLUID 14 %
[2024-03-13] MEDS ORDERED: SPIR25TA5 PO (18:54)
[2024-03-13] MEDS ORDERED: FURO-150 PO (18:54)
[2024-03-13 18:58] LABS: ALBUMIN,BODY FLUID < 0.6 G/DL; TOTAL PROTEIN,BODY FLUID < 2.0 G/DL
[2024-03-13] MEDS: albumin (human) 25% 100 ML IV solution IV ONE (19:18)
[2024-03-13 20:31] VITALS: BP 107/52; PULSE 73; RESP 16; TEMP 97.9; O2SAT 98
== END 2024-03-13 20:34 | disposition home or self-care (01) ==
LOC: ER 13:12
DX: R18.8 Other ascites (principal); I11.0 Hypertensive heart disease with heart failure; I50.9 Heart failure, unspecified; I25.10 Atherosclerotic heart disease of native coronary artery without angina pectoris; I25.2 Old myocardial infarction; Z95.1 Presence of aortocoronary bypass graft; E78.00 Pure hypercholesterolemia, unspecified; Z86.73 Personal history of transient ischemic attack (TIA), and cerebral infarction without residual deficits; Z88.8 Allergy status to other drugs, medicaments and biological substances
CPT/HCPCS: 36415; 49083; 74176; 80053; 81001; 82042; 83605; 83690; 83880; 84157; 84484; 85007; 85025; 87015; 87070; 87075; 87102; 87116; 87206; 89051; 96365; 99285; A6402; P9047; A6449